=== PATIENT | female | born 1945 | race Caucasian/White ===

== ENCOUNTER 2022-09-06 14:45 | Emergency (ER) | payer MEDICARE, MEDICAID ==
[2022-09-06 15:12] LABS: BASO % 0.7 % (0.0-1.0); EOS # 0.2 10*3/uL (0.0-0.4); EOS % 4.7 % (1.0-4.0); HEMATOCRIT 42.1 % (37.0-47.0); LYMPH # 1.2 10*3/uL (1.3-4.4); LYMPH % 27.3 % (27.0-41.0); MEAN CORPUSCULAR HGB 33.8 pg (27.0-31.0); MEAN CORPUSCULAR HGB CONC 33.5 g/dl (33.0-37.0); MEAN PLATELET VOLUME 9.9 fl (9.6-12.3); MONO # 0.6 10*3/uL (0.1-1.0); MONO % 13.5 % (3.0-9.0); NEUT # 2.3 10*3/uL (2.3-7.9); NEUT % 53.6 % (47.0-73.0); PLATELET COUNT AUTOMATED 150 10*3/uL (130-400); RED BLOOD COUNT 4.17 10*6/uL (4.10-5.10); RED CELL DISTRI WIDTH 12.1 % (0-14.5); WHITE BLOOD COUNT 4.2 10*3/uL (4.8-10.8)
[2022-09-06 15:31] LABS: CHLORIDE 107 mmol/L (98-107); POTASSIUM 3.6 mmol/L (3.5-5.1); SODIUM 140 mmol/L (136-145)
[2022-09-06 15:41] LABS: ALKALINE PHOSPHATASE 103 U/L (45-117); SGPT/ALT 31 U/L (12-78); TOTAL PROTEIN 6.8 gm/dL (6.4-8.2)
[2022-09-06 15:45] LABS: BUN 17 mg/dl (7-24); CREATININE 0.84 mg/dL (0.55-1.02); ETHYL ALCOHOL < 3.0 mg/dl (<3)
[2022-09-06] MEDS ORDERED: TYLENOL325 M1 PO (16:59)
[2022-09-06] MEDS ORDERED: TYLENOL EXTRA500 MG PO (17:00)
[2022-09-06] MEDS ORDERED: LIPITOR20 MG PO (17:00)
[2022-09-06] MEDS ORDERED: CELEXA20 MG PO (17:07)
[2022-09-06] MEDS ORDERED: VITAMIN D325 MCG PO (17:07)
[2022-09-06] MEDS ORDERED: DEPAKOTE SPRIN125 MG PO (17:09)
[2022-09-06] MEDS ORDERED: ARICEPT10 M1 PO (17:10)
[2022-09-06] MEDS ORDERED: 24 HOUR ALLERG9.9 ML NAS (17:11)
[2022-09-06] MEDS ORDERED: MUCUS RELIEF400 MG PO (17:12)
[2022-09-06] MEDS ORDERED: VISTARIL50 MG PO ×2 (17:13→17:14)
[2022-09-06] MEDS ORDERED: COZAAR25 M1 PO (17:15)
[2022-09-06] MEDS ORDERED: LEVOTHYROXINE25 MCG PO (17:15)
[2022-09-06] MEDS ORDERED: MELOXICAM7.5 MG PO (17:16)
[2022-09-06] MEDS ORDERED: DAILY VALUE1 EACH PO (17:17)
[2022-09-06] MEDS ORDERED: NASAL MIST30 ML NAS (17:19)
[2022-09-06] MEDS ORDERED: VITAMIN C500 M4 PO (17:20)
[2022-09-06] MEDS ORDERED: PROBIOTIC250 MG PO (17:20)
[2022-09-06 17:38] LABS: BILIRUBIN Negative (Negative); BLOOD Negative (Negative); CLARITY Clear (Clear); COLOR Dark Yellow (Yellow); GLUCOSE Negative (Negative); KETONE 1+ (Negative); LEUKO ESTERASE 1+ (Negative); NITRITE Negative (Negative); PH 5.5 (4.5-8.0); SPECIFIC GRAVITY >= 1.030 (1.001-1.030)
[2022-09-06 18:13] LABS: BACTERIA 2+; EPITHELIAL CELLS 41-50; RBC 0-2 rbc/hpf (0-2)
== END 2022-09-06 19:58 ==
LOC: ED 14:45
PROVIDERS: Nurse Practitioner Family
DX: R45.89 Other symptoms and signs involving emotional state (principal); Z79.899 Other long term (current) drug therapy